=== PATIENT | female | born 1995 | race Two or more races ===

== ENCOUNTER 2017-03-13 13:26 | Emergency (ER) | payer OTHER ==
[~2017-03-13] VITALS: Ht 165.1 cm; Wt 67.3 kg
[~2017-03-13 13:26] MED LIST: IBUPROFEN800 MG PO; METHERGINE0.2 MG PO
[2017-03-13 14:32] LABS: HEMATOCRIT 39.7 % (36.0-46.0); MCH 27.1 PG (29.0-34.0); MCV 84.6 FL (83-99); MEAN PLAT.VOLUME 9.6 uM^3 (9.5-12.4); PLATELET COUNT 413 K/uL (156-360); RBC DIS.WIDTH-CV 13.2 % (11.8-14.6); RBC DIS.WIDTH-SD 40.6 % (39-53); RED BLOOD COUNT 4.69 M/uL (3.80-5.20); WHITE BLOOD COUNT 6.2 K/uL (4.1-10.2)
[2017-03-13 14:40] LABS: CHLORIDE 103 mEq/L (99-109); POTASSIUM 4.3 mEq/L (3.7-5.4); SODIUM 136 mEq/L (136-147)
[2017-03-13 14:42] LABS: GLUCOSE 99 mg/dL (70-99)
[2017-03-13 14:44] LABS: ANION GAP 8 MEQ/L (2-14); TOTAL BILIRUBIN 0.8 mg/dL (0.0-1.0)
[2017-03-13 14:46] LABS: ALKALINE PHOSPHATASE 96 IU/L (3-129); GFR ESTIMATE (CALCULATED) > 59 mL/min/
[2017-03-13 14:47] LABS: UREA NITROGEN (BUN) 8 mg/dL (9-23)
[2017-03-13 14:55] LABS: QUANTITATIVE HCG < 4.0 MIU/ML
[2017-03-13 15:38] LABS: ADD MIUA? YES; BILIRUBIN NEGATIVE; BLOOD NEGATIVE; COLOR YELLOW ((YELLOW)); GLUCOSE (STRIP) NEGATIVE; KETONES NEGATIVE; LEUKOCYTES NEGATIVE; NITRITE NEGATIVE; PROTEIN (STRIP) 30; SPECIFIC GRAVITY 1.019 (1.000-1.030); UROBILINOGEN 0.2 MG/DL (0.2-1.0)
[2017-03-13 15:50] LABS: BACTERIA NONE SEEN /HPF; EPITHELIAL CELLS 3+ /HPF; MUCUS 1+ /LPF; RED BLOOD CELLS 0-5 /HPF (0-5); UCUL ADDED? NO; WHITE BLOOD CELLS 0-5 /HPF (0-5)
[2017-03-13] MEDS ORDERED: NAPROXEN500 MG PO (16:45)
[2017-03-13 17:01] VITALS: BP 125/90
== END 2017-03-13 17:02 | disposition home or self-care (01) ==
LOC: EME 13:26
DX: R10.30 Lower abdominal pain, unspecified (principal); R11.0 Nausea; R53.83 Other fatigue; Z87.891 Personal history of nicotine dependence
CPT/HCPCS: 74000; 80053; 81003; 84702; 85027; 99281; 99284

== ENCOUNTER 2017-03-14 19:48 | Emergency (ER) | payer OTHER ==
[~2017-03-14] VITALS: Ht 160 cm; Wt 67.9 kg
[~2017-03-14 19:48] MED LIST changes: +NAPROXEN500 MG PO
[2017-03-14 20:12] VITALS: BP 156/79
[2017-03-14 20:42] LABS: HEMATOCRIT 37.9 % (36.0-46.0); MCH 27.1 PG (29.0-34.0); MCHC 31.9 G/DL (30.0-36.0); MCV 84.8 FL (83-99); MEAN PLAT.VOLUME 9.6 uM^3 (9.5-12.4); PLATELET COUNT 373 K/uL (156-360); RBC DIS.WIDTH-CV 13.2 % (11.8-14.6); RBC DIS.WIDTH-SD 40.6 % (39-53); RED BLOOD COUNT 4.47 M/uL (3.80-5.20); WHITE BLOOD COUNT 8.1 K/uL (4.1-10.2)
[2017-03-14 20:54] LABS: CHLORIDE 106 mEq/L (99-109); POTASSIUM 3.5 mEq/L (3.7-5.4); SODIUM 140 mEq/L (136-147)
[2017-03-14 20:57] LABS: GLUCOSE 94 mg/dL (70-99)
[2017-03-14 20:58] LABS: ANION GAP 9 MEQ/L (2-14)
[2017-03-14 20:59] LABS: QUANTITATIVE HCG < 4.0 MIU/ML
[2017-03-14 21:00] LABS: ALKALINE PHOSPHATASE 93 IU/L (3-129); GFR ESTIMATE (CALCULATED) > 59 mL/min/
[2017-03-14 21:01] LABS: TOTAL BILIRUBIN 0.6 mg/dL (0.0-1.0); UREA NITROGEN (BUN) 9 mg/dL (9-23)
[2017-03-14 22:04] LABS: LIPASE 28 U/L (1.0-51.0)
== END 2017-03-14 22:24 | disposition left against medical advice (07) ==
LOC: EME 19:48
DX: R10.9 Unspecified abdominal pain (principal); R42 Dizziness and giddiness; Z53.21 Procedure and treatment not carried out due to patient leaving prior to being seen by health care provider
CPT/HCPCS: 80053; 81003; 83690; 84702; 85027; 99281; 99284

== ENCOUNTER 2017-03-17 17:39 | Emergency (ER) | payer OTHER ==
[~2017-03-17] VITALS: Ht 160 cm; Wt 68.6 kg
[2017-03-17 18:53] LABS: HEMATOCRIT 38.2 % (36.0-46.0); MCH 26.9 PG (29.0-34.0); MCHC 31.9 G/DL (30.0-36.0); MCV 84.1 FL (83-99); MEAN PLAT.VOLUME 9.5 uM^3 (9.5-12.4); PLATELET COUNT 371 K/uL (156-360); RBC DIS.WIDTH-SD 39.4 % (39-53); RED BLOOD COUNT 4.54 M/uL (3.80-5.20); WHITE BLOOD COUNT 7.6 K/uL (4.1-10.2)
[2017-03-17 19:06] LABS: CHLORIDE 106 mEq/L (99-109); POTASSIUM 3.8 mEq/L (3.7-5.4); SODIUM 138 mEq/L (136-147)
[2017-03-17 19:08] LABS: GLUCOSE 89 mg/dL (70-99)
[2017-03-17 19:10] LABS: ANION GAP 8 MEQ/L (2-14); TOTAL BILIRUBIN 0.5 mg/dL (0.0-1.0)
[2017-03-17 19:12] LABS: ALKALINE PHOSPHATASE 88 IU/L (3-129); GFR ESTIMATE (CALCULATED) > 59 mL/min/
[2017-03-17 19:13] LABS: UREA NITROGEN (BUN) 10 mg/dL (9-23)
[2017-03-17 19:21] LABS: QUANTITATIVE HCG < 4.0 MIU/ML
[2017-03-17 19:26] LABS: INTERNAL CONTROL VALID? YES; MONOSPOT (MONONUCLEOSIS SEROL) NEGATIVE
[2017-03-17] MEDS ORDERED: PREDNISONE10 M1 PO (19:29)
[2017-03-17] MEDS ORDERED: NAPROSYN500 MG PO (19:29)
[2017-03-17 19:57] VITALS: BP 117/66
== END 2017-03-17 19:57 | disposition home or self-care (01) ==
LOC: EME 17:39
PROVIDERS: Physician Assistant
DX: M79.1 Myalgia (principal); J02.9 Acute pharyngitis, unspecified; Z87.891 Personal history of nicotine dependence
CPT/HCPCS: 80053; 84702; 85027; 86308; 87651 90; 99281; 99284

== ENCOUNTER 2017-05-02 21:51 | Emergency (ER) | payer OTHER ==
[~2017-05-02] VITALS: Ht 160 cm; Wt 67.5 kg
[~2017-05-02 21:51] MED LIST changes: +NAPROSYN500 MG PO; +PREDNISONE10 M1 PO
[2017-05-03 00:38] VITALS: BP 106/67
== END 2017-05-03 00:41 | disposition home or self-care (01) ==
LOC: EME 21:51
DX: B34.9 Viral infection, unspecified (principal); R50.9 Fever, unspecified; J02.9 Acute pharyngitis, unspecified; R10.9 Unspecified abdominal pain; R07.9 Chest pain, unspecified; R42 Dizziness and giddiness; Z87.891 Personal history of nicotine dependence
CPT/HCPCS: 71020; 99281; 99283

== ENCOUNTER 2017-08-19 00:08 | Emergency (ER) | payer OTHER ==
[~2017-08-19] VITALS: Ht 160 cm; Wt 66.7 kg
[2017-08-19 00:41] LABS: HEMATOCRIT 38.4 % (36.0-46.0); MCHC 32.8 G/DL (30.0-36.0); MCV 85.3 FL (83-99); MEAN PLAT.VOLUME 9.6 uM^3 (9.5-12.4); PLATELET COUNT 310 K/uL (156-360); RBC DIS.WIDTH-CV 13.2 % (11.8-14.6); RBC DIS.WIDTH-SD 40.6 % (39-53)
[2017-08-19 01:15] LABS: QUANTITATIVE HCG < 4.0 MIU/ML
[2017-08-19 01:42] LABS: CHLORIDE 104 mEq/L (99-109); POTASSIUM 4.2 mEq/L (3.7-5.4); SODIUM 137 mEq/L (136-147)
[2017-08-19 01:45] LABS: GLUCOSE 119 mg/dL (70-99)
[2017-08-19 01:46] LABS: ANION GAP 11 MEQ/L (2-14)
[2017-08-19 01:47] LABS: TOTAL BILIRUBIN 1.4 mg/dL (0.0-1.0)
[2017-08-19 01:48] LABS: ALKALINE PHOSPHATASE 78 IU/L (3-129); GFR ESTIMATE (CALCULATED) > 59 mL/min/
[2017-08-19 01:49] LABS: UREA NITROGEN (BUN) 11 mg/dL (9-23)
[2017-08-19 02:23] LABS: ADD MIUA? YES; BILIRUBIN NEGATIVE; BLOOD LARGE; COLOR AMBER ((YELLOW)); GLUCOSE (STRIP) NEGATIVE; KETONES NEGATIVE; LEUKOCYTES LARGE; NITRITE NEGATIVE; PROTEIN (STRIP) 100; UROBILINOGEN 0.2 MG/DL (0.2-1.0)
[2017-08-19 02:41] LABS: EPITHELIAL CELLS 3+ /HPF; RED BLOOD CELLS 0-5 /HPF (0-5); WHITE BLOOD CELLS TNTC /HPF (0-5)
[2017-08-19 02:42] LABS: BACTERIA 3+ /HPF; CASTS NONE SEEN /LPF; CRYSTALS NONE SEEN; MUCUS RARE /LPF; UCUL ADDED? YES
[2017-08-19] MEDS ORDERED: ZOFRAN ODT4 MG PO (02:42)
[2017-08-19 02:49] VITALS: BP 117/72
== END 2017-08-19 02:57 | disposition home or self-care (01) ==
LOC: EME 00:08
DX: N39.0 Urinary tract infection, site not specified (principal); R11.0 Nausea; R42 Dizziness and giddiness; N94.6 Dysmenorrhea, unspecified
CPT/HCPCS: 80053; 81003; 84702; 85027; 87086; 99281; 99285; J1885; J2405; J7030